=== PATIENT | female | born 1995 | race Caucasian/White ===

== ENCOUNTER → 2017-02-03 | Outpatient (CLI) | payer OTHER ==
[2016-12-31 17:55] VITALS: BP 127/59
[~2017-02-03] MED LIST: ACET325T9 PO; PNV1TABL25 PO
--- NOTE | 2017-02-03 14:41 | RAD ---
EXAM: Obstetric ultrasound. HISTORY: Vaginal bleeding and . COMPARISON: None. FINDINGS: Sonographic evaluation of the pelvis was performed transabdominally and transvaginally. The uterus is anteverted and measures 14.1 x 6.4 x 9.8 cm. There is a single intrauterine gestation measuring 9 weeks 2 days. heart rate is 162 bpm. The yolk sac is visualized. A small subchorionic anechoic/hypoechoic focus may be a tiny subchorionic hemorrhage measuring 8 x 7 mm versus a placental soriano. The right ovary measures 3.5 x 2.8 x 1.9 cm. It contains a corpus luteum cyst measuring 2.1 x 2.0 cm. The left ovary is not visualized currently. There is a small but a physiologic free fluid. IMPRESSION: 1. Single intrauterine gestation measuring 9 weeks 2 days. heart rate 162 bpm. 2. Small subchorionic hemorrhage versus placental soriano.
== END | disposition home or self-care (01) ==
LOC: US 12:41
PROVIDERS: ATTEND Nurse Practitioner Women's Health
DX: Z33.1 Pregnant state, incidental (principal)
CPT/HCPCS: 76801; 76817

== ENCOUNTER → 2017-04-17 | Outpatient (CLI) | payer OTHER ==
[2016-12-31 17:55] VITALS: BP 127/59
--- NOTE | 2017-04-17 16:39 | RAD ---
Examination: Obstetrical ultrasound History: History of large for dates Comparison: 02/03/2017 Findings: Single living intrauterine identified. LMP is 11/30/2016 Clinical age 19 weeks and 5 days with estimated date of delivery 09/06/2017. The ultrasound age is 20 weeks and 3 days with expected date of delivery 09/01/2017 Estimated weight 368 g +/- 54 g Cephalic index 85.0 Head circumference to abdominal circumference ratio 1.15 Femur length to biparietal diameter 76.5 Femur length abdominal circumference 23.1 Femur length to head circumference 20.2 Biparietal diameter is 4.6 cm corresponding to 19 weeks and 6 days +/- 12 days Head circumference is 17.46 cm corresponding to 20 weeks and 0 days +/- 10 days Abdominal circumference 15.24 cm corresponding to 20 weeks and 3 days +/- 14 days Femur length 3.52 cm corresponding to 21 weeks and 1 day +/- 13 days heart rate 140 bpm 3 vessel cord is seen Cord insertion, fluid in the bladder, stomach, kidneys, spine: visualized brain could not be identified position is cephalic Amniotic fluid is normal Placental location is in the fundus. Impression: Single living intrauterine identified with heart rate 140 bpm
== END | disposition home or self-care (01) ==
LOC: US 13:07
PROVIDERS: ATTEND Family Medicine
DX: P08.1 Other heavy for gestational age newborn (principal)
CPT/HCPCS: 76805; 76817

== ENCOUNTER 2017-05-01 18:52 | Observation (INO) | payer OTHER ==
[2016-12-31 17:55] VITALS: BP 127/59
[2017-05-01 19:38] LABS: BILIRUBIN,URINE NEGATIVE (NEG); GLUCOSE,URINE NEGATIVE (NEG); NITRITE,URINE NEGATIVE (NEG); PROTEIN,URINE 30 mg/dL (NEG-TRACE)
[2017-05-01 19:52] LABS: BACTERIA,URINE FEW /HPF (0-FEW); SQUAMOUS EPITHELIAL CELL,UR FEW /LPF
[2017-05-01] MEDS ORDERED: CEPHALEXIN 250 MG CAPSULE. PO ONE (20:45)
[2017-05-01 21:16] LABS: BARBITURATES NEG (NEG); BENZODIAZEPINES NEG (NEG); CANNABINOIDS NEG (NEG); COCAINE NEG (NEG); METHADONE NEG (NEG); OPIATES NEG (NEG); PHENCYCLIDINE NEG (NEG)
--- NOTE | 2017-05-01 22:00 | RAD ---
INDICATION: pt c/o bleeding x 4-5 hrs and back pain COMPARISON: April 17, 2017 TECHNIQUE: Grayscale and color ultrasound images uterus. FINDINGS: Intrauterine is identified with estimated gestational age of 21 weeks and 5 days with estimated due date 09/06/2017. heart rate is 144. Estimated weight 446 g. Cephalic presentation at time of exam. Placenta at the posterior wall. Umbilical cord insertion seen. Poor visualization of spine. heart Limited visualization. heartbeat is seen. Three-vessel cord. Kidneys partially seen. Maternal ovaries not seen. IMPRESSION: 1. Intrauterine is identified with estimated gestational age of 21 weeks and 5 days with a positive heart rate visualized. Electronically signed by: Jimy Mccord MD (05/01/2017 9:57 PM)
== END 2017-05-01 23:13 | disposition home or self-care (01) ==
LOC: 3 SO LND 18:52
PROVIDERS: ADMIT Family Medicine; ATTEND Family Medicine
DX: O26.892 Other specified pregnancy related conditions, second trimester (principal); R30.9 Painful micturition, unspecified; Z3A.22 22 weeks gestation of pregnancy
CPT/HCPCS: 76816; 81001; 87086; G0378; G0379; G0481

== ENCOUNTER 2017-08-27 12:35 | Observation (INO) | payer OTHER ==
[2016-12-31 17:55] VITALS: BP 127/59
[2017-08-27] MEDS ORDERED: ACETAMINOPHEN 500 MG TABLET PO PRN (15:15)
== END 2017-08-27 15:37 | disposition home or self-care (01) ==
LOC: 3 SO LND 12:35
PROVIDERS: ADMIT Family Medicine; ATTEND Family Medicine
DX: O26.893 Other specified pregnancy related conditions, third trimester (principal); M79.606 Pain in leg, unspecified; M54.9 Dorsalgia, unspecified; Z3A.00 Weeks of gestation of pregnancy not specified
CPT/HCPCS: G0378; G0379

== ENCOUNTER 2017-09-03 07:46 | Inpatient (IN) | payer OTHER ==
[~2017-09-03] VITALS: Ht 170.2 cm; Wt 122.0 kg
[2017-09-03] MEDS ORDERED: 0.9 % SODIUM CHLORIDE 10 ML DISP.SYRIN. IV PRN ×2 (08:45→12:00)
[2017-09-03] MEDS ORDERED: ACETAMINOPHEN 325 MG TABLET. PO PRN ×2 (08:45→12:00)
[2017-09-03] MEDS ORDERED: ONDANSETRON PF 4 MG/2 ML VIAL. IV PRN ×2 (08:45→10:45)
[2017-09-03] MEDS ORDERED: OXYTOCIN 30 UNIT/500 ML PREMIX 500 ML IV PRN ×2 (08:45→12:00)
[2017-09-03] MEDS ORDERED: fentaNYL PF VIAL 100 MCG/2 ML VIAL IV PRN (08:45)
[2017-09-03] MEDS ORDERED: LIDOCAINE 1% PF 30 ML VIAL. INJ PRN (08:45)
[2017-09-03] MEDS ORDERED: IBUPROFEN 800 MG TABLET. PO PRN (08:45)
[2017-09-03] MEDS ORDERED: AMPICILLIN SODIUM 2 GM in IV NORMAL SALINE 100ML 100 ML IV ONE (09:00)
[2017-09-03] MEDS: IV RINGERS,LACTATED 1000ML 1,000 ML IV PRN ×2 (09:18→10:56)
[2017-09-03 09:21] VITALS: BP 131/80
[2017-09-03 09:34] LABS: BASO % 0 % (0-3); EOS % 1 % (0-3); HEMATOCRIT 33.2 % (36.0-47.0); HEMOGLOBIN 11.1 g/dL (12.0-15.5); LYMPH # 1.4 x10^3/uL (1.0-4.8); LYMPH % 17 % (24-48); MEAN CORPUSCULAR HEMOGLOBIN 28 pg (25-35); MEAN CORPUSCULAR HGB CONC 34 g/dL (31-37); MEAN CORPUSCULAR VOLUME 83 fL (79-100); MONO % 6 % (0-9); NEUT % 76 % (31-73); PLATELET COUNT 210 x10^3/uL (140-400); RED BLOOD COUNT 4.01 x10^6/uL (3.50-5.40); RED CELL DISTRIBUTION WIDTH 13.7 % (11.5-14.5)
[2017-09-03] MEDS ORDERED: ROPIVacaine 0.2% IN 0.9%NACL PF 40 MG/20 ML DISP.SYRIN. ONE (10:09)
[2017-09-03] MEDS ORDERED: L&D EPIDURAL CASSETTE 100 ML EP ONE (10:09)
[2017-09-03] MEDS ORDERED: IV RINGERS,LACTATED 1000ML 1,000 ML IV SCH (10:39)
[2017-09-03] MEDS ORDERED: NALOXONE 0.4 MG/ML VIAL. IV PRN (10:45)
[2017-09-03] MEDS ORDERED: L&D EPIDURAL CASSETTE 100 ML EP PRN (10:45)
[2017-09-03] MEDS ORDERED: fentaNYL PF VIAL 100 MCG/2 ML VIAL EPI PRN (10:45)
[2017-09-03] MEDS ORDERED: ROPIVacaine 0.2% IN 0.9%NACL PF 40 MG/20 ML DISP.SYRIN. EPI PRN (10:45)
[2017-09-03] MEDS ORDERED: ePHEDrine PF IN SALINE 50 MG/5 ML DISP.SYRIN IV PRN (10:45)
[2017-09-03] MEDS ORDERED: OXYTOCIN in NORMAL SALINE PREMIX 30 UNIT/500 ML BAG. IV ONE (11:30)
[2017-09-03] MEDS ORDERED: BENZOCAINE 20% TOPICAL AEROSOL SPRAY 57GM CAN. TP PRN (12:00)
[2017-09-03] MEDS ORDERED: SIMETHICONE 80 MG TAB.CHEW PO PRN (12:00)
[2017-09-03] MEDS ORDERED: MAGNESIUM HYDROXIDE 2,400 MG/30 ML ORAL.SUSP. PO PRN (12:00)
[2017-09-03] MEDS ORDERED: ZOLPIDEM 5 MG TABLET. PO PRN (12:00)
[2017-09-03] MEDS ORDERED: diphenhydrAMINE HCL 25 MG CAPSULE PO PRN (12:00)
[2017-09-03] MEDS ORDERED: HYDROCORTISONE 1% TOPICAL OINTMENT 30GM TUBE. TP PRN (12:00)
[2017-09-03] MEDS ORDERED: HYDROcodone/APAP 5/325MG 1 TAB TABLET PO PRN ×2 (12:00)
[2017-09-03] MEDS ORDERED: MAG HYDROX/ALUMINUM HYD/SIMETH 30 ML ORAL.SUSP PO PRN (12:00)
[2017-09-03] MEDS ORDERED: PHENYLEPH/MINERAL OIL/PETROLAT RECTAL OINTMENT 28GM TUBE. RC PRN (12:00)
--- NOTE | 2017-09-03 12:01 | PDOC1 ---
OB - History Hx of Present Care: Good Care Ultrasounds: Normal mid trimester US Obstetrical Complications: Other (Obesity, Second in 12 months) Medical Complications: None Past Family/Social History * Past Medical, Surgical, Family and Obstetric Histories reviewed from chart. Blood Type: A+ Rubella: Immune RPR/VDRL: Negative GBS Status: Positive HBsAG: Negative OB - Chief Complaint & HPI Date of Admission: Date of Admission: Sep 03, 2017 at 08:49 Chief Complaint/History : 2 Para: 1 EDC: Sep 06, 2017 Reason for admission: active labor Admission Nurse Assessment Rev: Yes Problems: OB - Admission Exam Physical Exam Vitals: VS - Last 72 Hours, by Label Date Time Temp Pulse Resp B/P (MAP) Pulse Ox O2 Delivery O2 Flow Rate FiO2 09/03/17 09:21 98.1 78 20 131/80 (97) Room Air 98.1 09/03/17 09:17 20 Room Air HEENT: Normal, Nasal Mucosa Normal, Oropharynx Normal, Moist Membranes, Fontanelles Normal Lungs: Clear Abdomen: Gravid Extremities: Normal Pulses, No tenderness or swelling Reflexes: Normal Cervical Dilatation: 4cm Effacement: 75% Membranes: Ruptured Amniotic Fluid: Clear Heart Rate: Normal Accelerations: Accelerations Present Decelerations: No decelerations Short Term Variability: Present Grounds Maintenance Worker Variability: Moderate Contractions on Admission: < 5 Minutes Apart Intensity: ALCIDES Mayfield MD Sep 03, 2017 12:01
--- NOTE | 2017-09-03 12:27 | OP ---
DATE OF SURGERY: 09/03/2017 DATE OF SERVICE: 09/03/2017 REASON FOR ADMISSION: Active labor. CLINICAL COURSE: This patient is a 22-year-old female with EDC of 09/06/2017, admitted in active labor with risks of second in 12 months and obesity as well as GBS positive status. She was given 1 dose of IV antibiotics and progressed through labor rapidly to complete. She had artificial rupture of membranes at that time with clear fluid noted. Epidural anesthesia was administered at 5 to 6 cm, but due to rapid onset of labor, minimal efficacy was noted. The patient did deliver a viable female in the OP presentation with a first degree right-sided periurethral laceration. 's head was delivered and suctioned and subsequently the shoulders were delivered and infant was again suctioned. Infant was held at perineum with clamping of cord 30 seconds after delivery, cord was transected and infant was handed off. Cord blood was obtained. Placenta was delivered intact with 3-vessel cord noted. Uterus was firm with Pitocin and palpation. There was approximately 250 mL blood loss. Periurethral laceration was sutured with 3-0 chromic in a running fashion. Local anesthesia for repair was used. Mother and , went to recovery in stable condition. There were no further complications of this delivery. ALCIDES KUMAR MD DR: SWETHA/destiney JOB#: [id number] / [id number]
[2017-09-03] MEDS ORDERED: AMPICILLIN SODIUM 1 GM in IV NORMAL SALINE 50ML 50 ML IV SCH (13:00)
[2017-09-03] MEDS: IBUPROFEN 800 MG TABLET. PO SCH (13:57)
[2017-09-03 21:00] VITALS: BP 128/82
[2017-09-04 01:30] VITALS: BP 110/55
[2017-09-04] MEDS: IBUPROFEN 800 MG TABLET. PO SCH ×2 (05:31→19:39)
[2017-09-04 05:53] LABS: BASO % 0 % (0-3); EOS % 1 % (0-3); HEMATOCRIT 30.8 % (36.0-47.0); HEMOGLOBIN 10.3 g/dL (12.0-15.5); LYMPH # 2.4 x10^3/uL (1.0-4.8); LYMPH % 25 % (24-48); MEAN CORPUSCULAR HEMOGLOBIN 28 pg (25-35); MEAN CORPUSCULAR HGB CONC 33 g/dL (31-37); MEAN CORPUSCULAR VOLUME 84 fL (79-100); MONO % 7 % (0-9); NEUT % 67 % (31-73); PLATELET COUNT 205 x10^3/uL (140-400); RED BLOOD COUNT 3.69 x10^6/uL (3.50-5.40); WHITE BLOOD COUNT 9.6 x10^3/uL (4.0-11.0)
[2017-09-04 06:08] VITALS: BP 110/55
[2017-09-04] MEDS ORDERED: FERROUS SULFATE 325 MG TABLET. PO SCH (08:00)
[2017-09-04 08:28] VITALS: BP 128/66
[2017-09-04 11:20] VITALS: BP 116/62
--- NOTE | 2017-09-04 12:47 | PDOC ---
PROGRESS NOTES Subjective Subjective Patient doing well post delivery day 1. Patient having decreased bleeding and lochia, patient having decreased pain, patient ambulating and tolerating diet well Objective Objective Vital Signs Date Time Temp Pulse Resp B/P (MAP) Pulse Ox O2 Delivery O2 Flow Rate FiO2 09/04/17 08:28 98.4 67 18 128/66 (86) 98 Room Air 98.4 Physical Exam Abdomen: Normal bowel sounds, Other (uterus firm below umbilicus) Heart: Regular rate Extremities: No edema, Other (negative Homans sign) General: Alert Lungs: Clear to auscultation Assessment Assessment day #1 Plan Plan of Care Continue routine care Comment Review of Relevant I have reviewed the following items lindsay (where applicable) has been applied. Labs Laboratory Tests Test 09/03/17 09:20 09/04/17 05:00 White Blood Count 8.0 x10^3/uL (4.0-11.0) 9.6 x10^3/uL (4.0-11.0) Red Blood Count 4.01 x10^6/uL (3.50-5.40) 3.69 x10^6/uL (3.50-5.40) Hemoglobin 11.1 g/dL (12.0-15.5) 10.3 g/dL (12.0-15.5) Hematocrit 33.2 % (36.0-47.0) 30.8 % (36.0-47.0) Mean Corpuscular Volume 83 fL (79-100) 84 fL (79-100) Mean Corpuscular Hemoglobin 28 pg (25-35) 28 pg (25-35) Mean Corpuscular Hemoglobin Concent 34 g/dL (31-37) 33 g/dL (31-37) Red Cell Distribution Width 13.7 % (11.5-14.5) 14.0 % (11.5-14.5) Platelet Count 210 x10^3/uL (140-400) 205 x10^3/uL (140-400) Neutrophils (%) (Auto) 76 % (31-73) 67 % (31-73) Lymphocytes (%) (Auto) 17 % (24-48) 25 % (24-48) Monocytes (%) (Auto) 6 % (0-9) 7 % (0-9) Eosinophils (%) (Auto) 1 % (0-3) 1 % (0-3) Basophils (%) (Auto) 0 % (0-3) 0 % (0-3) Neutrophils # (Auto) 6.1 x10^3uL (1.8-7.7) 6.5 x10^3uL (1.8-7.7) Lymphocytes # (Auto) 1.4 x10^3/uL (1.0-4.8) 2.4 x10^3/uL (1.0-4.8) Monocytes # (Auto) 0.5 x10^3/uL (0.0-1.1) 0.7 x10^3/uL (0.0-1.1) Eosinophils # (Auto) 0.1 x10^3/uL (0.0-0.7) 0.1 x10^3/uL (0.0-0.7) Basophils # (Auto) 0.0 x10^3/uL (0.0-0.2) 0.0 x10^3/uL (0.0-0.2) RPR Titer Additional Testing Non reactive (Non Reactive) Laboratory Tests Test 09/04/17 05:00 White Blood Count 9.6 x10^3/uL (4.0-11.0) Red Blood Count 3.69 x10^6/uL (3.50-5.40) Hemoglobin 10.3 g/dL (12.0-15.5) Hematocrit 30.8 % (36.0-47.0) Mean Corpuscular Volume 84 fL (79-100) Mean Corpuscular Hemoglobin 28 pg (25-35) Mean Corpuscular Hemoglobin Concent 33 g/dL (31-37) Red Cell Distribution Width 14.0 % (11.5-14.5) Platelet Count 205 x10^3/uL (140-400) Neutrophils (%) (Auto) 67 % (31-73) Lymphocytes (%) (Auto) 25 % (24-48) Monocytes (%) (Auto) 7 % (0-9) Eosinophils (%) (Auto) 1 % (0-3) Basophils (%) (Auto) 0 % (0-3) Neutrophils # (Auto) 6.5 x10^3uL (1.8-7.7) Lymphocytes # (Auto) 2.4 x10^3/uL (1.0-4.8) Monocytes # (Auto) 0.7 x10^3/uL (0.0-1.1) Eosinophils # (Auto) 0.1 x10^3/uL (0.0-0.7) Basophils # (Auto) 0.0 x10^3/uL (0.0-0.2) Medications Current Medications Sodium Chloride (Normal Saline Flush) 3 ml QSHIFT PRN IV AFTER MEDS AND BLOOD DRAWS; Start 09/03/17 at 08:45 Ringer's Solution 1,000 ml @ 125 mls/hr Q8H PRN IV PER PROTOCOL Last administered on 09/03/17 10:56; Start 09/03/17 at 08:45 Fentanyl Citrate (Fentanyl 2ml Vial) 100 mcg PRN Q1HR PRN IV Severe pain Last administered on 09/03/17 09:17; Start 09/03/17 at 08:45 Acetaminophen (Tylenol) 650 mg PRN Q6HRS PRN PO MILD PAIN / TEMP; Start at 08:45 Ondansetron HCl (Zofran) 4 mg PRN Q4HRS PRN IV NAUSEA/VOMITING; Start 09/03/17 at 08:45 Lidocaine HCl 30 ml 1X PRN PRN INJ SEE COMMENTS Last administered on 09/03/17 12:06; Start 09/03/17 at 08:45; Stop 09/05/17 at 08:44 Ampicillin Sodium 2 gm/Sodium Chloride 100 ml @ 200 mls/hr 1X ONCE IV Last administered on 09/03/17 09:17; Start 09/03/17 at 09:00; Stop 09/03/17 at 09:29 ; Status DC Ampicillin Sodium 1 gm/Sodium Chloride 50 ml @ 100 mls/hr Q4H IV ; Start at 13:00; Stop 09/04/17 at 06:04; Status DC Oxytocin/Sodium Chloride 500 ml @ 0 mls/hr CONT PRN PRN IV Post delivery bleeding; Start 09/03/17 at 08:45 Ibuprofen (Motrin) 800 mg PRN Q6HRS PRN PO PAIN; Start 09/03/17 at 08:45 Ropivacaine/ Fentanyl/NS 100 ml @ As Directed STK-MED ONCE EP ; Start 09/03/17 at 10:09; Stop 09/03/17 at 10:10; Status DC Ropivacaine/ Sodium Chloride 40 mg STK-MED ONCE .ROUTE ; Start 09/03/17 at 10:09 ; Stop 09/03/17 at 10:10; Status DC Ringer's Solution 1,000 ml @ 1,000 mls/hr Q1H IV ; Start 09/03/17 at 10:39; Stop 09/03/17 at 11:38; Status DC Ephedrine Sulfate 10 mg PRN Q2MIN PRN IV IF SBP<90; Start 09/03/17 at 10:45 Naloxone HCl (Narcan) 0.4 mg PRN Q1MIN PRN IV SEE COMMENTS; Start 09/03/17 at 10:45 Fentanyl Citrate (Fentanyl 2ml Vial) 100 mcg PRN 1X PRN EPI FOR ANESTHESIA; Start 09/03/17 at 10:45; Stop 09/04/17 at 10:44; Status DC Ropivacaine/ Fentanyl/NS 100 ml @ 14 mls/hr CONT PRN EP PAIN Last administered on 09/03/17 12:08; Start 09/03/17 at 10:45 Ondansetron HCl (Zofran) 4 mg PRN Q6HRS PRN IV NAUSEA/VOMITING; Start 09/03/17 at 10:45 Ropivacaine/ Sodium Chloride 40 mg PRN 1X PRN EPI SEE COMMENTS Last administered on 09/03/17 12:06; Start 09/03/17 at 10:45; Stop 09/04/17 at 10:44 ; Status DC Sodium Chloride (Normal Saline Flush) 10 ml QSHIFT PRN IV AFTER MEDS AND BLOOD DRAWS; Start 09/03/17 at 12:00 Oxytocin/Sodium Chloride 500 ml @ 62.5 mls/hr CONT PRN IV SEE I/O RECORD; Start 09/03/17 at 12:00; Stop 09/03/17 at 19:59; Status DC Acetaminophen (Tylenol) 650 mg PRN Q6HRS PRN PO MILD PAIN / TEMP; Start at 12:00 Ibuprofen (Motrin) 800 mg Q8HRS PO Last administered on 09/04/17 05:31; Start 09/03/17 at 14:00 Magnesium Hydroxide (Milk Of Magnesia) 2,400 mg PRN DAILY PRN PO CONSTIPATION; Start 09/03/17 at 12:00 Al Hydroxide/Mg Hydroxide (Mylanta Plus Xs) 30 ml PRN Q4HRS PRN PO HEARTBURN / GAS; Start 09/03/17 at 12:00 Simethicone (Gas-X) 80 mg PRN AFTMEALHC PRN PO GAS / BLOATING; Start 09/03/17 at 12:00 Diphenhydramine HCl (Benadryl) 25 mg PRN Q6HRS PRN PO ITCHING; Start 09/03/17 at 12:00 Benzocaine (Americaine) 1 spray PRN QID PRN TP TOPICAL PAIN; Start 09/03/17 at 12:00 Phenyleph/Shark Oil/Min Oil/Petrol (Preparation H) 1 jasen PRN QID PRN RC RECTAL PAIN; Start 09/03/17 at 12:00 Hydrocortisone (Cortaid) 1 jasen PRN QID PRN TP PERINEAL PAIN; Start 09/03/17 at 12:00 Ferrous Sulfate (Feosol) 325 mg BIDWMEALS PO ; Start 09/04/17 at 08:00; Stop at 12:09; Status DC Zolpidem Tartrate (Ambien) 5 mg PRN QHS PRN PO INSOMNIA, MAY REPEAT X1; Start 09/03/17 at 12:00 Info (Do NOT chart on this placeholder) 1 ea 1X PRN PRN MC SEE COMMENTS; Start 09/03/17 at 12:00 Acetaminophen/ Hydrocodone Bitart (Lortab 5/325) 1 tab PRN Q4HRS PRN PO MILD PAIN; Start 09/03/17 at 12:00 Acetaminophen/ Hydrocodone Bitart (Lortab 5/325) 2 tab PRN Q4HRS PRN PO MODERATE PAIN, SEVERE PAIN; Start 09/03/17 at 12:00 Oxytocin/Sodium Chloride (Oxytocin Premix Infusion) 30 unit STK-MED ONCE IV ; Start 09/03/17 at 11:30; Stop 09/04/17 at 09:20; Status DC Influenza Virus Vaccine Quadrival (Fluarix Quad [id number] Syringe) 0.5 ml ONCE ONCE VAX IM ; Start 09/04/17 at 13:00; Stop 09/04/17 at 13:01 Active Scripts Active Vitals/I & O Vital Sign - Last 24 Hours 09/03/17 09/04/17 09/04/17 09/04/17 21:00 01:30 06:08 08:28 Temp 98.6 98.2 98.2 98.4 98.6 98.2 98.2 98.4 Pulse 78 71 71 67 Resp 16 16 18 B/P (MAP) 128/82 (97) 110/55 (73) 110/55 (73) 128/66 (86) Pulse Ox 98 98 99 98 O2 Delivery Room Air Room Air Room Air ALCIDES KUMAR MD Sep 04, 2017 12:47
[2017-09-04] MEDS ORDERED: FLU VACC QS2017-18 (36MOS+)/PF 0.5 ML SYRINGE. VAX IM ONE (13:00)
[2017-09-04 16:30] VITALS: BP 118/70
[2017-09-04 21:35] VITALS: BP 119/70
[2017-09-05 05:12] VITALS: BP 122/84
--- NOTE | 2017-09-05 09:23 | PDOC3 ---
OB DISCHARGE SUMMARY DATE OF ADMISSION: 09/03/17 DATE OF DISCHARGE: 09/05/17 REASON FOR ADMISSION: Onset of labor PROCEDURES: Others (GBS + antibx X 1) INTRAPARTUM PROCEDURES: Vaginal Laceration DISCHARGE DIAGNOSIS: Term Delivered DISCHARGE INFORMATION: Activity (no sexual activity 6 weeks), Diet (regular), Medications (see Mrad), Instructions (given), Discharge to (To Home with Infant) HOSPITAL COURSE Normal CONDITION AT DISCHARGE Stable ALCIDES KUMAR MD Sep 05, 2017 09:22
[2017-09-05 12:00] VITALS: BP 112/68
== END 2017-09-05 12:32 | disposition home or self-care (01) | DRG 775 ==
LOC: 3 SO LND 07:46 → OBSVTOIN 08:49 → 3 NORTH 13:46
PROVIDERS: ADMIT Family Medicine; ATTEND Family Medicine
PROC: 10E0XZZ Delivery of Products of Conception, External Approach (ICD-10-PCS; principal; 2017-09-03)
PROC: 10907ZC Drainage of Amniotic Fluid, Therapeutic from Products of Conception, Via Natural or Artificial Opening (ICD-10-PCS; 2017-09-03)
PROC: 00HU33Z Insertion of Infusion Device into Spinal Canal, Percutaneous Approach (ICD-10-PCS; 2017-09-03)
PROC: 0HQ9XZZ Repair Perineum Skin, External Approach (ICD-10-PCS; 2017-09-03)
DX: O99.824 Streptococcus B carrier state complicating childbirth (principal); Z68.41 Body mass index [BMI] 40.0-44.9, adult; E66.9 Obesity, unspecified; O99.210 Obesity complicating pregnancy, unspecified trimester; Z37.0 Single live birth; O70.0 First degree perineal laceration during delivery
CPT/HCPCS: 36415; 85025; 86593; 86850; 86900; 86901; 90686; G0378; G0379; J0290; J2590; J2795; J3010; J7120

== ENCOUNTER 2017-11-12 12:49 | Emergency (ER) | payer OTHER ==
[~2017-11-12] VITALS: Ht 175.3 cm; Wt 117.9 kg
[2017-11-12] MEDS ORDERED: ONDANSETRON PF 4 MG/2 ML VIAL. IV ONE (13:45)
[2017-11-12] MEDS ORDERED: IV NORMAL SALINE 1000ML BAG 1,000 ML IV ONE (13:45)
[2017-11-12 13:50] LABS: BASO % 1 % (0-3); EOS % 6 % (0-3); HEMATOCRIT 32.6 % (36.0-47.0); HEMOGLOBIN 10.6 g/dL (12.0-15.5); LYMPH # 1.9 x10^3/uL (1.0-4.8); LYMPH % 29 % (24-48); MEAN CORPUSCULAR HEMOGLOBIN 27 pg (25-35); MEAN CORPUSCULAR HGB CONC 32 g/dL (31-37); MEAN CORPUSCULAR VOLUME 84 fL (79-100); MONO % 8 % (0-9); NEUT % 57 % (31-73); PLATELET COUNT 278 x10^3/uL (140-400); RED BLOOD COUNT 3.91 x10^6/uL (3.50-5.40); RED CELL DISTRIBUTION WIDTH 13.9 % (11.5-14.5); WHITE BLOOD COUNT 6.4 x10^3/uL (4.0-11.0)
[2017-11-12 13:53] LABS: BILIRUBIN,URINE NEGATIVE (NEG); GLUCOSE,URINE NEGATIVE (NEG); NITRITE,URINE NEGATIVE (NEG); PROTEIN,URINE NEGATIVE (NEG-TRACE)
[2017-11-12 14:02] LABS: CREATININE 0.8 mg/dL (0.6-1.0); GFR 88.1; POTASSIUM 3.4 mmol/L (3.5-5.1)
[2017-11-12 14:10] LABS: BACTERIA,URINE MANY /HPF (0-FEW); RBC,URINE 0 /HPF (0-2); SQUAMOUS EPITHELIAL CELL,UR MANY /LPF; WBC,URINE >40 /HPF (0-4)
[2017-11-12 14:30] VITALS: BP 101/56
[2017-11-12] MEDS ORDERED: SULF1TAB24 PO (14:53)
[2017-11-12] MEDS ORDERED: ONDA4TAB10 SL (14:55)
--- NOTE | 2017-11-12 15:23 | PHYS DOC ---
Past Medical History Past Medical History: No Pertinent History Past Surgical History: No Surgical History Alcohol Use: None Drug Use: None Adult General Chief Complaint Chief Complaint: NAUSEA/VOMITING/DIARRHA HPI HPI Patient is a 22 year old female who presents with nausea, vomiting and diarrhea that began last night. The patient developed diarrhea that lasted overnight. She started throwing up this morning and has been and able to hold down food or water. They state that she works at [employer] and that several people on her workforce are sick with the same symptoms. She has been unable to keep any [id number] medications down to control her symptoms. Review of Systems Review of Systems Constitutional: Denies fever or chills [] Respiratory: Denies cough or shortness of breath [] Cardiovascular: No additional information not addressed in HPI [] GI: See history of present illness : Denies dysuria or hematuria [] Musculoskeletal: Denies back pain or joint pain [] Integument: Denies rash or skin lesions [] Neurologic: Denies headache, focal weakness or sensory changes [] Endocrine: Denies polyuria or polydipsia [] All other systems were reviewed and found to be within normal limits, except as documented in this note. Current Medications Current Medications Current Medications Medications (Trade) Dose Ordered Sig/Enrique Start Time Stop Time Status Last Admin Dose Admin Ondansetron HCl (Zofran) 4 mg 1X ONCE 11/12/17 13:45 11/12/17 13:46 DC 11/12/17 13:43 4 MG Sodium Chloride 1,000 ml @ 1,000 mls/hr 1X ONCE 11/12/17 13:45 11/12/17 14:44 DC 11/12/17 13:43 1,000 MLS/HR Allergies Allergies Allergies Coded Allergies Type Severity Reaction Last Updated Verified No Known Drug Allergies 09/16/15 No Physical Exam Physical Exam Constitutional: Well developed, well nourished, no acute distress, non-toxic appearance. [] Cardiovascular:Heart rate regular rhythm, no murmur [] Lungs & Thorax: Bilateral breath sounds clear to auscultation [] Abdomen: Bowel sounds hyperactive, soft, slight epigastric tenderness, no masses , no pulsatile masses. [] Skin: Warm, dry, no erythema, no rash. [] Back: No tenderness, no CVA tenderness. [] Neurologic: Alert and oriented X 3, normal motor function, normal sensory function, no focal deficits noted. [] Psychologic: Affect normal, judgement normal, mood normal. [] Current Patient Data Vital Signs Vital Signs Date Time Temp Pulse Resp B/P (MAP) Pulse Ox O2 Delivery O2 Flow Rate FiO2 11/12/17 14:30 50 101/56 (71) 100 Room Air 11/12/17 12:50 97.8 16 97.8 Lab Values Laboratory Tests Test 11/12/17 12:56 11/12/17 13:12 POC Urine HCG, Qualitative Hcg negative (Negative) White Blood Count 6.4 x10^3/uL (4.0-11.0) Red Blood Count 3.91 x10^6/uL (3.50-5.40) Hemoglobin 10.6 g/dL (12.0-15.5) L Hematocrit 32.6 % (36.0-47.0) L Mean Corpuscular Volume 84 fL (79-100) Mean Corpuscular Hemoglobin 27 pg (25-35) Mean Corpuscular Hemoglobin Concent 32 g/dL (31-37) Red Cell Distribution Width 13.9 % (11.5-14.5) Platelet Count 278 x10^3/uL (140-400) Neutrophils (%) (Auto) 57 % (31-73) Lymphocytes (%) (Auto) 29 % (24-48) Monocytes (%) (Auto) 8 % (0-9) Eosinophils (%) (Auto) 6 % (0-3) H Basophils (%) (Auto) 1 % (0-3) Neutrophils # (Auto) 3.6 x10^3uL (1.8-7.7) Lymphocytes # (Auto) 1.9 x10^3/uL (1.0-4.8) Monocytes # (Auto) 0.5 x10^3/uL (0.0-1.1) Eosinophils # (Auto) 0.3 x10^3/uL (0.0-0.7) Basophils # (Auto) 0.0 x10^3/uL (0.0-0.2) Urine Collection Type Unknown Urine Color Yellow Urine Clarity Clear Urine pH 6.0 Urine Specific [place] 1.025 Urine Protein Negative mg/dL (NEG-TRACE) Urine Glucose (UA) Negative mg/dL (NEG) Urine Ketones (Stick) Trace mg/dL (NEG) Urine Blood Negative (NEG) Urine Nitrite Negative (NEG) Urine Bilirubin Negative (NEG) Urine Urobilinogen Dipstick 1.0 mg/dL (0.2 mg/dL) Urine Leukocyte Esterase Moderate (NEG) Urine RBC 0 /HPF (0-2) Urine WBC >40 /HPF (0-4) Urine Squamous Epithelial Cells Many /LPF Urine Bacteria Many /HPF (0-FEW) Urine Mucus Marked /LPF Sodium Level 141 mmol/L (136-145) Potassium Level 3.4 mmol/L (3.5-5.1) L Chloride Level 107 mmol/L (98-107) Carbon Dioxide Level 29 mmol/L (21-32) Anion Gap 5 (6-14) L Blood Urea Nitrogen 11 mg/dL (7-20) Creatinine 0.8 mg/dL (0.6-1.0) Estimated GFR (Cockcroft-Gault) 88.1 Glucose Level 91 mg/dL (70-99) Calcium Level 8.0 mg/dL (8.5-10.1) L Laboratory Tests 11/12/17 13:12 Laboratory Tests 11/12/17 13:12 EKG EKG [] Radiology/Procedures Radiology/Procedures [] Course & Med Decision Making Course & Med Decision Making Pertinent Labs and Imaging studies reviewed. (See chart for details) 1. Urinary tract infection 2. Gastroenteritis Please take your medications as prescribed. Try to increase her fluids and use Zofran if necessary to be able to tolerate fluid intake. Follow-up with your primary care provider in one week for urine recheck or return to the ED if worsening. Dragon Disclaimer Dragon Disclaimer This electronic medical record was generated, in whole or in part, using a voice recognition dictation system. Departure Departure Impression: Primary Impression: Gastroenteritis Disposition: 01 HOME, SELF-CARE Condition: STABLE Patient Instructions: Urinary Tract Infection, Nausea and Vomiting, Easy-to- Read Additional Instructions: Please follow a brat diet until your nausea and diarrhea have ceased. Follow-up with your primary care provider if not improving in 3 days or return to the ED if worsening. Scripts Ondansetron (ZOFRAN ODT) 4 Mg Tab.rapdis 1 TAB SL Q8HRS Y for NAUSEA, #10 TAB Prov: SANDRITA CHURCH RAILROAD REPAIRER 11/12/17 Sulfamethoxazole/Trimethoprim (BACTRIM DS TABLET) 1 Each Tablet 1 TAB PO BID, #20 TAB Prov: SANDRITA CHURCH APRN 11/12/17 SANDRITA CHURCH APRN Nov 12, 2017 15:23
== END 2017-11-12 15:07 | disposition home or self-care (01) ==
LOC: ER 12:49
DX: K52.9 Noninfective gastroenteritis and colitis, unspecified (principal)
CPT/HCPCS: 36415; 80048; 81001; 81025; 85025; 87086; 96361; 96374; 99284; J2405; J7030